=== PATIENT | female | born 1985 | race Caucasian/White ===

== ENCOUNTER 2019-09-23 12:30 | Emergency (ER) | payer OTHER ==
[2019-09-23 12:40] VITALS: BP 97/62; PULSE 85; TEMP 97.9; BMI 34.3
--- NOTE | 2019-09-23 13:26 | PDOC ---
History of Present Illness - General History Source: Patient Exam Limitations: Clinical Condition - History of Present Illness Initial Comments: 09/23/19 13:20 Patient with 13 weeks on ultrasound present with complaint of blood on tissue when using bathroom today. Patient also reporting 2 weeks history of intermittent cough which she saw her PCP a week ago and was advised likely from cold. Denies fevers, chills, body aches, weakness. Patient reported having outpatient ultrasound done last week with normal . Patient has not taken anything for symptoms. Denies any other symptoms <ShellyMeet Jacob - Last Filed: 09/23/19 14:31> <Tony Gonzales - Last Filed: 09/23/19 16:00> - General Chief Complaint: Vaginal Bleeding Stated Complaint: 13 WKS PRGT Time Seen by Provider: 09/23/19 12:46 Past History - Past Medical History COPD: No GI Disorders: Yes (Gastritis, Gastric ulcer) - Psycho Social/Smoking Cessation Hx Smoking History: Never smoked <ShellyMeet Jacob - Last Filed: 09/23/19 14:31> <Tony Gonzales - Last Filed: 09/23/19 16:00> - Past Medical History Allergies/Adverse Reactions: Allergies Allergy/AdvReac Type Severity Reaction Status Date / Time tramadol Allergy Verified 09/23/19 12:41 Review of Systems - Review of Systems Able to Perform ROS?: Yes Is the patient limited Montenegrin proficient: No Constitutional: No: Chills, Fever, Malaise HEENTM: No: Symptoms Reported, See HPI, Eye Pain, Blurred Vision, Tearing, Recent change in vision, Double Vision, Cataracts, Ear Pain, Ocular Prothesis, Ear Discharge, Nose Pain, Nose Congestion, Tinnitus, Nose Bleeding, Hearing Loss, Throat Pain, Throat Swelling, Mouth Pain, Dental Problems, Difficulty Swallowing, Mouth Swelling, Other Respiratory: Yes: Symptoms reported, See HPI, Cough. No: Orthopnea, Shortness of Breath, SOB with Exertion, SOB at Rest, Stridor, Wheezing, Productive cough, Hemoptysis, Other Cardiac (ROS): Yes: Symptoms Reported, See HPI, Chest Pain (intermittent midsternal pain). No: Edema, Irregular Heart Rate, Lightheadedness, Palpita tions, Syncope, Chest Tightness, Other ABD/GI: Yes: Symptoms Reported, See HPI, Nausea. No: Constipated, Diarrhea, Poor Appetite, Vomiting, Indigestion, Abdominal cramping : No: Symptoms Reported, Burning, Dysuria, Discharge, Frequency, Flank Pain, Hematuria, Incontinence, Urgency All Other Systems: Reviewed and Negative <Meet Bravo - Last Filed: 09/23/19 14:31> *Physical Exam - Vital Signs Last Vital Signs Temp Pulse Resp BP Pulse Ox 97.9 F 85 20 97/62 100 09/23/19 12:37 09/23/19 12:37 09/23/19 12:37 09/23/19 12:37 09/23/19 12:37 - Physical Exam General Appearance: Yes: Nourished, Appropriately Dressed. No: Apparent Distress HEENT: positive: YULI, Normal ENT Inspection, Pharynx Normal Neck: positive: Supple Respiratory/Chest: positive: Lungs Clear, Normal Breath Sounds. negative: Chest Tender, Respiratory Distress, Accessory Muscle Use Cardiovascular: positive: Regular Rhythm, Regular Rate Female Pelvic Exam: positive: normal external exam, cervical os closed, normal adnexa. negative: CMT, discharge, lesions, adnexal tenderness, vaginal bleeding Gastrointestinal/Abdominal: positive: Normal Bowel Sounds, Soft. negative: Tender, Organomegaly Musculoskeletal: positive: Normal Inspection. negative: CVA Tenderness Extremity: positive: Normal Inspection Integumentary: positive: Normal Color Neurologic: positive: Fully Oriented, Alert, Normal Mood/Affect, Normal Response, Motor Strength 5/5 <Meet Bravo - Last Filed: 09/23/19 14:31> - Vital Signs Last Vital Signs Temp Pulse Resp BP Pulse Ox 97.9 F 85 20 97/62 100 09/23/19 12:37 09/23/19 12:37 09/23/19 12:37 09/23/19 12:37 09/23/19 12:37 <Tony Gonzales - Last Filed: 09/23/19 16:00> ED Treatment Course - LABORATORY CBC & Chemistry Diagram: 09/23/19 13:10 - RADIOLOGY Radiology Studies Ordered: Category Date Time Status <14WKS US [US] Stat Ultrasound 09/23/19 13:13 Ordered <Meet Bravo - Last Filed: 09/23/19 14:31> - LABORATORY CBC & Chemistry Diagram: 09/23/19 13:10 - ADDITIONAL ORDERS Additional order review: Laboratory Results 09/23/19 09/23/19 09/23/19 13:13 13:10 13:10 Beta HCG, Quant 46904.2 Urine Color Yellow Urine Appearance Clear Urine pH 6.5 Ur Specific [place] 1.018 Urine Protein Negative Urine Glucose (UA) Negative Urine Ketones Negative Urine Blood Negative Urine Nitrite Negative Urine Bilirubin Negative Urine Urobilinogen 1.0 Ur Leukocyte Esterase Negative Blood Type A POSITIVE Antibody Screen Negative 09/23/19 13:10 RBC 3.73 MCV 95.8 MCHC 33.9 RDW 12.2 MPV 9.1 Neutrophils % 66.2 Lymphocytes % 24.3 Monocytes % 7.6 Eosinophils % 1.6 Basophils % 0.3 - Medications Given in the ED: ED Medications Discontinued Medications Generic Name Dose Route Start Last Admin Trade Name Zachery PRN Reason Stop Dose Admin Acetaminophen 650 mg 09/23/19 13:27 09/23/19 13:42 Tylenol - PO 09/23/19 13:28 650 mg ONCE ONE Administration Ondansetron HCl 4 mg 09/23/19 13:27 09/23/19 13:43 Zofran Odt - SL 09/23/19 13:28 4 mg ONCE ONE Administration <Tony Gonzales - Last Filed: 09/23/19 16:00> Medical Decision Making - Medical Decision Making 09/23/19 13:21 Patient with 13 weeks on ultrasound present with complaint of blood on tissue when using bathroom today. Patient also reporting 2 weeks history of intermittent cough which she saw her PCP a week ago and was advised likely from cold. Denies fevers, chills, body aches, weakness. Patient reported having outpatient ultrasound done last week with normal . Patient has not taken anything for symptoms. Denies any other symptoms Clinical exam unremarkable. No vaginal bleeding or blood in vaginal vault. Cervical os closed. Lungs clear to auscultation bilateral. Patient afebrile. Patient cough symptoms likely viral URI. Will do type and screen to make sure no need for RhoGam. Beta hCG lab ordered. Patient report intermittent abdominal cramping. Tylenol ordered for pain. ultrasound ordered to evaluate . Treat based on lab and imaging results 09/23/19 14:27 CBC and chemistry lab unremarkable. Vaginal ultrasound shows live IUP with BPD consistent with 14.5 weeks with live IUP and heart rate of 161 bpm. Patient is symptomatic now and stable for discharge with strict follow-up <Meet Bravo - Last Filed: 09/23/19 14:31> - Medical Decision Making 09/23/19 16:00 I reviewed the case of the mid-level practitioner and was available for consultation while in the emergency department <Tony Gonzales - Last Filed: 09/23/19 16:00> Discharge - Discharge Information Problems reviewed: Yes - Admission No <Meet Bravo - Last Filed: 09/23/19 14:31> <Tony Gonzales - Last Filed: 09/23/19 16:00> - Discharge Information Clinical Impression/Diagnosis: Threatened , URI with cough and congestion Condition: Stable Disposition: HOME - Patient Discharge Instructions Patient Printed Discharge Instructions: DI for Threatened Additional Instructions: Your blood work is normal. Your ultrasound shows live baby and is normal. follow back with your FR[employer] WE[employer] DES[employer]ER about the vaginal bleeding. Take Tylenol as needed for pain. Increase fluid intake. Come back to emergency room if worsening vaginal bleeding
[2019-09-23] MEDS ORDERED: ONDANSETRON *ODT* 4 MG TABLET SL ONE (13:27)
[2019-09-23] MEDS ORDERED: ACETAMINOPHEN 325 MG TABLET (FP) PO ONE (13:27)
[2019-09-23] MEDS ORDERED: ONDANSETRON *ODT* 4 MG TABLET ONE (13:28)
[2019-09-23] MEDS ORDERED: ACETAMINOPHEN 325 MG TABLET (FP) ONE (13:28)
[2019-09-23 13:44] LABS: BASO % 0.3 % (0-2.0); EOS % 1.6 % (0-4.5); HEMATOCRIT 35.7 % (32.4-45.2); HEMOGLOBIN 12.1 GM/dL (10.7-15.3); LYMPH % 24.3 % (8-40); MCH 32.5 pg (25.7-33.7); MCHC 33.9 g/dl (32.0-36.0); MEAN CELL VOLUME 95.8 fl (80-96); MEAN PLT VOLUME 9.1 fl (7.5-11.1); MONO % 7.6 % (3.8-10.2); NEUT % 66.2 % (42.8-82.8); PLATELET COUNT 275 K/MM3 (134-434); RBC 3.73 M/mm3 (3.60-5.2); RDW 12.2 % (11.6-15.6); WHITE BLOOD COUNT 6.4 K/mm3 (4.0-10.0)
[2019-09-23 13:50] LABS: PH,URINE 6.5 (5.0-8.0); URINE APPEARANCE CLEAR; URINE BILIRUBIN NEGATIVE (NEGATIVE); URINE COLOR YELLOW; URINE GLUCOSE (UA) NEGATIVE (NEGATIVE); URINE KETONE NEGATIVE (NEGATIVE); URINE LEUK ESTERASE NEGATIVE (NEGATIVE); URINE NITRITE NEGATIVE (NEGATIVE); URINE PROTEIN NEGATIVE (NEGATIVE)
== END 2019-09-23 14:35 | disposition home or self-care (01) ==
LOC: JER 12:30
DX: O20.0 Threatened abortion (principal); O99.511 Diseases of the respiratory system complicating pregnancy, first trimester; J06.9 Acute upper respiratory infection, unspecified; Z3A.13 13 weeks gestation of pregnancy
CPT/HCPCS: 36415; 76801-TC; 81003; 84702; 85025; 86850; 86900; 86901; 87086; 99284-25; Q0162

== ENCOUNTER 2020-03-12 12:31 | Inpatient (IN) | payer OTHER ==
--- OUTSIDE RECORDS SUMMARY | 2020-03-12 12:48 | XMS ---
:1985 Author Organization [facility] Support Name Relationship Address Phone UE, UNEMPLOYED Unavailable Unavailable Unavailable UE Unavailable Unavailable Unavailable TANYA RODRIGUEZ [address] [place] [address] TANYA TOMLINSON Unavailable [address] [place] [address] Re-disclosure Warning The records that you are about to access may contain information from federally- assisted alcohol or drug abuse programs. If such information is present, then the following federally mandated warning applies: This information has been disclosed to you from records protected by federal confidentiality rules (42 CFR part 2). The federal rules prohibit you from making any further disclosure of this information unless further disclosure is expressly permitted by the written consent of the person to whom it pertains or as otherwise permitted by 42 CFR part 2. A general authorization for the release of medical or other information is NOT sufficient for this purpose. The Federal rules restrict any use of the information to criminally investigate or prosecute any alcohol or drug abuse patient.The records that you are about to access may contain highly sensitive health information, the redisclosure of which is protected by Article 27-F of the [facility] Public Health law. If you continue you may haveaccess to information: Regarding HIV / AIDS; Provided by facilities licensed or operated by the [facility] Office of Mental Health; or Provided by the [facility] Office for People With Developmental Disabilities. If such information is present, then the following [facility] mandated warning applies: This information has been disclosed to you from confidential records which are protected by state law. State law prohibits you from making any further disclosure of this information without the specific written consent of the person to whom it pertains, or as otherwise permitted by law. Any unauthorized further disclosure in violation of state law may result in a fine or snf sentence or both. A general authorization for the release of medical or other information is NOT sufficient authorization for further disclosure. Insurance Providers Payer name Policy type Policy ID Covered Covered constitution party's Policy P thor / Coverage constitution party ID relationship to Aldana Inf ormation type aldana DARLENE [id number] 600 HEALTH NON CAP DARLENE [id number] ESSENTIAL PLAN 1 2 Results ID Date Data Source [id number] 03/07/2020 09:29:00 AM EDT [facility] Name Value Range Interpretation Description Data Sup porting Code Source(s) Document(s ) SARS [facility] coronavirus 2 RNA This lab was ordered by [facility] and reported by [facility]. ID Date Data Source [id number] 12/13/2019 12:00:00 AM EDT [facility] Name Value Range Interpretation Code Description Data Lacey rce(s) Supporting Document(s ) 2019-nCoV [facility] RNA XXX DARRYL+probe- Imp This lab was ordered by [facility] and reported by [employer] Procedure
[2020-03-12] MEDS: ELECTROLYTE-148 SOLN 1,000 ML IV SCH ×2 (13:00→14:16)
[2020-03-12] MEDS ORDERED: CITRIC ACID/SODIUM CITRATE 30 ML UNIT-DOSE CUP PO ONE (13:28)
[2020-03-12] MEDS ORDERED: ELECTROLYTE-148 SOLN 1,000 ML IV SCH (13:30)
--- NOTE | 2020-03-12 13:38 | HP ---
Past Medical History - Primary Care Physician PCP:: Waldemar Eckert - Admission History Source: Patient Limitations to Obtaining History: No Limitations - Past Medical History SAUSAGE STRINGER: No: Alzheimer's, CVA, Dementia, Migraine, Multiple Sclerosis, Peripheral Neuropathy, Parkinson's, Seizure, Syncope, TIA, Vertigo, Other Cardiovascular: No: AFIB, Aneurysm, Aortic Insufficiency, Aortic Stenosis, CAD, CHF, Deep Vein Thrombosis, HTN, Hyperlipdemia, DC, Mitral Insufficiency, Mitral Stenosis, Murmur, Pulmonary Hypertension, Other Pulmonary: No: Asthma, Bronchitis, Cancer, COPD, O2 Dependent, Pneumonia, Previously Intubated, Pulmonary Embolus, Pulmonary Fibrosis, Sleep Apnea, Other Gastrointestinal: No: Ascites, Cancer, Constipation, Crohn's Disease, Diverticulitis, Diverticulosis, Esophageal Varices, Gastritis, GERD, GI Bleed, Hemorrhoids, Hiatal Hernia, Inflamatory Bowel Disease, Irritable Bowel Disease, Pancreatitis, Peptic Ulcer Disease, Ulcerative Colitis, Other Hepatobiliary: No: Cirrhosis, Cholelithiasis, Cholecystitis, Choledocholithiasis, Hepatitis A, Hepatitis B, Hepatitis C, Other Renal/: No: Renal Failure, Renal Inusuff, BPH, Cancer, Hematuria, Hemodialysis, Neurogenic Bladder, Renal Calculi, UTI, Other Reproductive: No: Ectopic , Endometriosis, Fibroids, PID, Polycystic Ovary Syndrome, Postmenopausal, Other Heme/Onc: No: Anemia, B12 Deficiency, Bleeding Disorder, Cancer, Current Chemotherapy, Current Radiation Therapy, Hemochromatosis, Hypercoaguable State, Myeloproliferative Synd, Sickle Cell Disease, Sickle Cell Trait, Thrombocytopenia, Other Infectious Disease: No: AIDS, C-Diff, Herpes Zoster, HIV, MRSA, STD's, Tuberculosis, VREF, Other Psych: No: Addictions, Anxiety, Bipolar, Depression, Panic, Psychosis, Schizophrenia, Other Musculoskeletal: No: Bursitis, Chronic low back pain, Hemiparesis, Hemiplegia, Osteoarthritis, Paraplegia, Other Rheumatology: No: Fibromyalgia, Gout, Lupus, Rheumatoid Arthritis, Sarcoidosis, Vasculitis, Other ENT: No: Allergic Rhinitis, Sinusitis, Other Endocrine: No: Zavala's Disease, [place]'s Disease, Diabetes Insipidus, Diabetes Mellitus, Hyperparathyroidism, Hyperthyroidism, Hypothyroidism, Osteopenia, SIADH, Other Dermatology: No: Basal Cell, Cellulitis, Eczema, Melanoma, Psoriasis, Squamous Cell, Other - Past Surgical History Past Surgical History: Yes: Hx Myomectomy: No Hx Transabdominal Cerclage: No - Smoking History Smoking history: Never smoked Have you smoked in the past 12 months: No - Alcohol/Substance Use Hx Alcohol Use: No - Social History History of Recent Travel: No Home Medications - Allergies Allergies/Adverse Reactions: Allergies Allergy/AdvReac Type Severity Reaction Status Date / Time tramadol Allergy Vomiting Verified 01/25/20 12:30 - Home Medications Home Medications: Ambulatory Orders Vit 93/Iron Fum/Folic [ Formula Tablet] 1 each PO DAILY 01/25/20 Family Medical History Family History: Unremarkable Review of Systems Findings/Remarks: Anxious - Review of Systems Constitutional: reports: No Symptoms Eyes: reports: No Symptoms HENT: reports: No Symptoms Neck: reports: No Symptoms Cardiovascular: reports: No Symptoms Respiratory: reports: No Symptoms Gastrointestinal: reports: No Symptoms Genitourinary: reports: No Symptoms Breasts: reports: No Symptoms Reported Musculoskeletal: reports: No Symptoms Neurological: reports: No Symptoms Endocrine: reports: No Symptoms Hematology/Lymphatic: reports: No Symptoms Psychiatric: reports: No Symptoms Physical Exam - Maternity Vital Signs: as reported by nursing Constitutional: Yes: No Distress HENT: Yes: Atraumatic Neck: Yes: Supple - Abdominal Exam/OB Number of Fetuses: Single Presentation: Vertex Contractions: Yes Regularity: Irritability Intensity: Unaware Monitor Mode: External Heart Rate (range): 140 Category: I Accelerations: Uniform Decelerations: None - Vaginal Exam/OB Vaginal Bleeding: No Speculum Exam: No Amniotic Membrane Status: Intact - Physical Exam Musculoskeletal: Yes: WNL Extremities: Yes: WNL Edema: Yes Edema: LLE: Trace, RLE: Trace Integumentary: Yes: Laceration ...Motor Strength: WNL Psychiatric: Yes: Alert, Oriented - Labs Lab Results: reviewed Imaging - Results Ultrasound: Report Reviewed Assessment/Plan 35 y/o @ 39.0wks, prior C/S and desiring repeat, risks and complications of the procedure discussed and all questions answered. Informed consnet obtained. -proceed as scheduled.
[2020-03-12 14:11] VITALS: BMI 38.9
[2020-03-12] MEDS ORDERED: morphine SULFATE/PF 0.5 MG/ML (2cc Syringe - QUVA) ONE (14:33)
[2020-03-12] MEDS ORDERED: ePHEDrine SULFATE 50 MG/1 ML AMPULE ONE (14:46)
[2020-03-12] MEDS ORDERED: OXYTOCIN 20 UNITS in 0.9% NS 40 UNIT/2,000 ML INFUS.BAG IV ONE (14:58)
[2020-03-12] MEDS: OXYTOCIN 20 UNITS in 0.9% NS 20 UNIT/1,000 ML INFUS.BAG IV SCH ×2 (15:20→16:11)
--- NOTE | 2020-03-12 15:21 | PN ---
Progress Note (short form) - Note Progress Note: Attended schedule C/S for this 35 yrs old mother with PNL-nl. delivered , clear fluid cried soon after suctioned/ dried cord 3V 9/9 Infant's PE exam Infant remains clinically stable HEENT- nl, Neck supple Chest B/L symm, S1-S2 nl, no heart murmur nl male infant Ext FROM nl hip exam Good tone & activity RNBc watch for resp distress Encourage Bf/ bonding
--- NOTE | 2020-03-12 15:46 | OP ---
Operative Note - Note: Operative Date: 03/12/20 (# [id number]) Pre-Operative Diagnosis: prior c/S Operation: RLTCS Findings: see dictations Post-Operative Diagnosis: Same as Pre-op Surgeon: Waldemar Eckert [employer] Assistant: Deric Rocha Anesthesia: Spinal Specimens Removed: placenta Estimated Blood Loss (mls): 800 Drains, Volume Out (mls): 75 (clear urine) Fluid Volume Replaced (mls): 2,000 Operative Report Dictated: Yes
[2020-03-12] MEDS ORDERED: ONDANSETRON 4 MG/2 ML VIAL IVPUSH PRN (15:54)
[2020-03-12] MEDS ORDERED: morphine SULFATE/PF 0.5 MG/ML (2cc Syringe - QUVA) EP ONE (15:54)
--- NOTE | 2020-03-12 17:20 | OP ---
DATE OF OPERATION: 03/12/2020 PREOPERATIVE DIAGNOSIS: A 35-year-old female 2, para 0-1-0-1 at 39 weeks of gestation, prior section, desires repeat. Obese. POSTOPERATIVE DIAGNOSIS: A 35-year-old female 2, para 0-1-0-1 at 39 weeks of gestation, prior section, desires repeat. Obese. PROCEDURE: Repeat low transverse section. SURGEON: Elise Dodson MD. WATER CHEMIST: BK Cook. ANESTHESIA: Spinal. ESTIMATED BLOOD LOSS: EBL for the procedure is 800 mL crystalloid. URINE: 75 mL clear urine. COMPLICATIONS: None. SPECIMEN: Placenta. INTRAOPERATIVE FINDINGS: Low abdominal scar consistent with prior section, pronounced amount of subcutaneous adipose tissue. The fascia was thick and fibrotic, adherent to the underlying rectus muscles. The rectus muscles were fused to each other in the midline. No parietal visceral peritoneal adhesions. Thin adhesions of the bladder to the lower, the bladder was adherent to the lower uterine segment. The lower uterine segment was not effaced. Infant in cephalic presentation. Live viable male. Loose nuchal cord x1 noted. Clear amniotic fluid. Uterus, fallopian tubes, and ovaries consistent with normal anatomy. DESCRIPTION OF PROCEDURE: The patient was taken to the operating room where anesthesia was found to be adequate. She was then prepped and draped in the normal sterile fashion. A Velásquez catheter was placed atraumatically. Appropriate timeout took place. Pfannenstiel skin incision following prior section scar was made with the scalpel and incision carried through pronounced amount of subcutaneous adipose tissue to put the Bovie. The fascia was incised in the midline and incision extended laterally with sharp dissection. The underlying rectus muscles were dissected off sharply. The rectus muscles were elevated and superiorly with Allis were transected vertically superiorly. Inferior entry into the peritoneal cavity revealed no visualized adhesions. Incision was extended superiorly and inferiorly with sharp dissection. Took adhesions of the bladder to the anterior peritoneum and lower uterine segment were taken down sharply. The lower uterine segment incision was made with the scalpel and extended laterally with blunt dissection. Amniotomy revealed clear amniotic fluid. Infant was delivered through surgical incision with mild fundal pressure. Loose nuchal cord was removed. The umbilical cord was clamped and cut after delay and handed off to the waiting NICU staff. The placenta was delivered manually and intact. The uterus was exteriorized through the surgical incision, the intrauterine cavity was cleared of all clots and debris. The incision was reapproximated with 1-0 Polysorb in a running locked suture. Excellent structural reapproximation with 1 layer suture, 1 [id number]-[id number] stitch required in the midline to control minimal oozing. Uterus was internalized to the pelvic cavity and gutters were cleared of all clots and debris. Inspection of the lower uterine segment incision revealed once again excellent hemostasis. The fascial incision was reapproximated with 0 Polysorb running nonlocked sutures. This was done at the bladder dome, rectus muscle fascia interface, and carefully inspected for no active bleeding or evidence of trauma. Fascial layer approximation was . Subcutaneous tissues were copiously irrigated and reapproximated with 2-0 chromic sutures. Skin incision was reapproximated with surgical christy. The patient tolerated the procedure well and was brought to the recovery room in stable condition. Instrument count was reported as correct x2. ELISE DODSON MD [id number]
[2020-03-12] MEDS: IBUPROFEN 800 MG/8 ML IJ IVPB PRN (23:14)
[2020-03-13] MEDS: IBUPROFEN 800 MG/8 ML IJ IVPB PRN (06:37)
[2020-03-13 07:38] LABS: BASO % 0.1 % (0-2.0); HEMATOCRIT 30.7 % (32.4-45.2); HEMOGLOBIN 10.1 GM/dL (10.7-15.3); LYMPH % 7.3 % (8-40); MCH 31.9 pg (25.7-33.7); MCHC 32.8 g/dl (32.0-36.0); MEAN CELL VOLUME 97.2 fl (80-96); MEAN PLT VOLUME 9.1 fl (7.5-11.1); MONO % 4.6 % (3.8-10.2); PLATELET COUNT 228 K/MM3 (134-434); RBC 3.16 M/mm3 (3.60-5.2); RDW 12.4 % (11.6-15.6); WHITE BLOOD COUNT 17.8 K/mm3 (4.0-10.0)
--- NOTE | 2020-03-13 07:55 | PN ---
Post Progress Note - Subjective Subjective: Velásquez in place, not yet ambulating, tolerating PO, lochia present and nurse reports it more pronounced, pain controlled Post Day: 1 Type of Delivery: Repeat C/S Vital Signs: Vital Signs Temperature 98.3 F 03/13/ 06:00 Pulse Rate 82 03/13/20 06:00 Respiratory Rate 20 03/13/20 06:00 Blood Pressure 102/52 L 03/13/20 06:00 O2 Sat by Pulse Oximetry (%) 96 03/13/20 06:00 Breast Exam: Yes: Other Uterus: Yes: Fundus Firm Incision: Yes: Dressing dry and intact (christy removed), [place] intact Abdomen/GI: Yes: Abdomen soft Lochia, amount: Moderate Extremities: Yes: Calves non-tender Perineum: Yes: Intact (SVE: cervix is FT and no lower segment clots noted, fundus firm and 2 cm below umbilicus, minimal lochia) Activity: Other Assessment/Plan 35 y/o on POD # 1 in stable condition, no evidence of active bleeding -F/U CBC -Continue PP/post-op care -Anticipate D/C home on POD # 3
--- NOTE | 2020-03-13 08:39 | PN ---
Progress Note (short form) - Note Progress Note: Anesthesiologist pot op note, POD#1. S/P repeat under spinal anesthesia with duramorph. Pat seen and examined. VSS. Pain well controlled. 08/08. Moving all extremities. Reports pain in right lower leg, where she states having chronic problem with poor circulation.No new onset. No swelling or TTP of right lower extremity. No apparent post anesthesia complications.
[2020-03-13] MEDS: ACETAMINOPHEN 325 MG TABLET (FP) PO PRN (10:30)
[2020-03-13] MEDS ORDERED: CEFAZOLIN 2 GM/D5W 2 GM/50 ML ML IVPB ONE (11:15)
[2020-03-13] MEDS: oxyCODONE HCL 5 MG TABLET PO PRN ×3 (12:34→21:09)
[2020-03-13] MEDS: IBUPROFEN 600 MG TABLET (FP) PO PRN ×3 (12:36→21:11)
[2020-03-13] MEDS ORDERED: BISACODYL 10 MG SUPP.RECT RC PRN (13:38)
[2020-03-13] MEDS: SIMETHICONE 80 MG TAB.CHEW (FP) PO PRN (21:09)
[2020-03-14] MEDS: oxyCODONE HCL 5 MG TABLET PO PRN ×3 (05:31→19:12)
[2020-03-14] MEDS: SIMETHICONE 80 MG TAB.CHEW (FP) PO PRN ×2 (05:31→11:40)
[2020-03-14] MEDS: IBUPROFEN 600 MG TABLET (FP) PO PRN ×4 (05:33→19:12)
--- NOTE | 2020-03-14 08:51 | PN ---
Post Progress Note - Subjective Subjective: pain scale 8/10 voiding without difficulty Post Day: 2 Type of Delivery: Repeat C/S Vital Signs: Vital Signs Temperature 97.9 F 03/13/20 22:00 Pulse Rate 103 H 03/13/20 22:00 Respiratory Rate 18 03/13/20 22:00 Blood Pressure 106/71 03/13/20 22:00 O2 Sat by Pulse Oximetry (%) 96 03/13/20 06:00 Breast Exam: Yes: Soft. No: Engorged Uterus: Yes: Fundus Firm, Fundus below umbilicus (ut tender). No: Non-tender Incision: Yes: Rani intact. No: Redness, Oozing Abdomen/GI: Yes: Abdomen soft, Tender, Passing flatus (bm not done ), Tolerating PO (diet). No: Abdominal Distention Lochia: Yes: Rubra Lochia, amount: Small Extremities: Yes: Calves non-tender Perineum: Yes: Intact Activity: Ambulating - Labs Labs: CBC WBC 17.8 K/mm3 (4.0-10.0) H 03/13/20 07:00 RBC 3.16 M/mm3 (3.60-5.2) L 03/13/20 07:00 Hgb 10.1 GM/dL (10.7-15.3) L 03/13/20 07:00 Hct 30.7 % (32.4-45.2) L 03/13/20 07:00 MCV 97.2 fl (80-96) H 03/13/20 07:00 MCH 31.9 pg (25.7-33.7) 03/13/20 07:00 MCHC 32.8 g/dl (32.0-36.0) 03/13/20 07:00 RDW 12.4 % (11.6-15.6) 03/13/20 07:00 Plt Count 228 K/MM3 (134-434) 03/13/20 07:00 MPV 9.1 fl (7.5-11.1) 03/13/20 07:00 Absolute Neuts (auto) 15.6 K/mm3 (1.5-8.0) H 03/13/20 07:00 Neutrophils % 88.0 % (42.8-82.8) H D 03/13/20 07:00 Lymphocytes % 7.3 % (8-40) L D 03/13/20 07:00 Monocytes % 4.6 % (3.8-10.2) 03/13/20 07:00 Eosinophils % 0.0 % (0-4.5) D 03/13/20 07:00 Basophils % 0.1 % (0-2.0) 03/13/20 07:00 Nucleated RBC % 0 % (0-0) 03/13/20 07:00 Problem List - Problems (1) Status post section routine follow-up Code(s): Z39.2 - ENCOUNTER FOR ROUTINE FOLLOW-UP; Z98.891 - HISTORY OF UTERINE SCAR FROM PREVIOUS SURGERY Assessment/Plan pt stable. s/p poc/s day#2 pt encouraged to ambulate , drink po fluids , take deep breaths . will discharge PO Day #3
[2020-03-14 12:46] VITALS: TEMP 97.7
[2020-03-14] MEDS: ACETAMINOPHEN 325 MG TABLET (FP) PO PRN (15:46)
--- NOTE | 2020-03-14 18:01 | PATH ---
Surgical Pathology Report Patient Name: RYANN PARSONS Med. Rec. #: [id number] /Age/Gender: 1985 (Age: 35) / F Account: [id number] Location: [facility] OBS/LEAD SHIPPER Taken: 03/12/2020 Received: 03/13/2020 Reported: 03/14/2020 Physicians: Waldemar Eckert MD Specimen(s) Received PLACENTA Clinical History , Final Diagnosis PLACENTA, SECTION: 646 G THIRD TRIMESTER PLACENTA WITH TRIVASCULAR UMBILICAL CORD AND UNREMARKABLE PLACENTAL MEMBRANES. Electronically Signed Carmella Bonds M.D. Gross Description The specimen is received fresh labeled placenta and is a 646 gram, 20 x 17 x 5 cm. placenta with attached membranes and umbilical cord. The attached membranes are valdez, translucent, and insert marginally. The umbilical cord measures 57 cm. in length and averages 1.4 cm. in diameter. The cord inserts eccentrically, 5 cm. to the nearest margin. No true knots or strictures are identified. Cut surface of the umbilical cord reveals 3 vessels. The surface is brownlee-blue with minimal fibrin deposition and appropriate caliber vessels. The maternal surface is red-brown with focal defects. Sectioning reveals red-brown, spongy parenchyma. No lesions are identified. Referral Manager sections are submitted in three cassettes as follows: 1- membrane rolls and umbilical cord; 2-3- full thickness sections of placenta. MLSZ/03/13/2020 sanml/03/13/2020
[2020-03-15] MEDS: IBUPROFEN 600 MG TABLET (FP) PO PRN ×2 (00:14→05:17)
[2020-03-15] MEDS: ACETAMINOPHEN 325 MG TABLET (FP) PO PRN ×2 (00:14→05:18)
[2020-03-15] MEDS: SIMETHICONE 80 MG TAB.CHEW (FP) PO PRN ×2 (00:16→11:11)
[2020-03-15] MEDS: oxyCODONE HCL 5 MG TABLET PO PRN (07:38)
--- NOTE | 2020-03-15 08:20 | PN ---
Post Progress Note - Subjective Subjective: Pain controlled. Passing flatus. Ambulating. No fevers/chills. Post Day: 3 Type of Delivery: Repeat C/S Vital Signs: Vital Signs Temperature 97.7 F 03/14/20 22:00 Pulse Rate 85 03/14/20 22:00 Respiratory Rate 18 03/14/20 22:00 Blood Pressure 101/61 03/14/20 22:00 O2 Sat by Pulse Oximetry (%) 96 03/13/20 06:00 Uterus: Yes: Fundus below umbilicus Incision: Yes: Rani intact Abdomen/GI: Yes: Abdomen soft, Tolerating PO Lochia: Yes: Rubra Perineum: Yes: Intact Activity: Ambulating - Labs Labs: CBC WBC 17.8 K/mm3 (4.0-10.0) H 03/13/20 07:00 RBC 3.16 M/mm3 (3.60-5.2) L 03/13/20 07:00 Hgb 10.1 GM/dL (10.7-15.3) L 03/13/20 07:00 Hct 30.7 % (32.4-45.2) L 03/13/20 07:00 MCV 97.2 fl (80-96) H 03/13/20 07:00 MCH 31.9 pg (25.7-33.7) 03/13/20 07:00 MCHC 32.8 g/dl (32.0-36.0) 03/13/20 07:00 RDW 12.4 % (11.6-15.6) 03/13/20 07:00 Plt Count 228 K/MM3 (134-434) 03/13/20 07:00 MPV 9.1 fl (7.5-11.1) 03/13/20 07:00 Absolute Neuts (auto) 15.6 K/mm3 (1.5-8.0) H 03/13/20 07:00 Neutrophils % 88.0 % (42.8-82.8) H D 03/13/20 07:00 Lymphocytes % 7.3 % (8-40) L D 03/13/20 07:00 Monocytes % 4.6 % (3.8-10.2) 03/13/20 07:00 Eosinophils % 0.0 % (0-4.5) D 03/13/20 07:00 Basophils % 0.1 % (0-2.0) 03/13/20 07:00 Nucleated RBC % 0 % (0-0) 03/13/20 07:00 Assessment/Plan 35yo s/p RLTCS, POD#3 Routine PP care PO pain control Labs reviewed D/C to home Roosevelt Da Silva MD
--- NOTE | 2020-03-15 08:30 | DS ---
Physical Examination Vital Signs: Vital Signs Temperature 97.7 F 03/14/20 22:00 Pulse Rate 85 03/14/20 22:00 Respiratory Rate 18 03/14/20 22:00 Blood Pressure 101/61 03/14/20 22:00 O2 Sat by Pulse Oximetry (%) 96 03/13/20 06:00 Constitutional: Yes: Well Nourished, No Distress, Calm Eyes: Yes: WNL, Conjunctiva Clear, EOM Intact HENT: Yes: WNL, Atraumatic, Normocephalic Neck: Yes: WNL, Supple, Trachea Midline Cardiovascular: Yes: WNL, Regular Rate and Rhythm Respiratory: Yes: WNL, Regular, CTA Bilaterally Gastrointestinal: Yes: WNL, Normal Bowel Sounds Musculoskeletal: Yes: WNL Extremities: Yes: WNL Edema: Yes Edema: LLE: 1+, RLE: 1+ Integumentary: Yes: WNL Neurological: Yes: WNL, Alert, Oriented ...Motor Strength: WNL Psychiatric: Yes: WNL Labs: CBC, BMP 03/13/20 07:00 Discharge Summary Problems reviewed: Yes Reason For Visit: Current Active Problems Status post section routine follow-up (Acute) Hospital Course: Patient presented for scheduled RLTCS She had an uncomplicated RLTCS She met all milestones She was discharged home on POD#3 in stable condition Condition: Stable - Instructions Diet, Activity, Other Instructions: Please return to regular diet as tolerated, refrain from strenuous activity until cleared by MD, follow up within a week of discharge for incision check, take medications as prescribed, call MD with any questions or concerns. Referrals: Waldemar Eckert MD [Staff Physician] - Disposition: HOME - Home Medications Comprehensive Discharge Medication List: Ambulatory Orders Vit 93/Iron Fum/Folic [ Formula Tablet] 1 each PO DAILY Acetaminophen [Tylenol] 650 mg PO Q6H PRN #30 capsule MDD 5 03/12/20 Ibuprofen 600 mg PO Q6H PRN #30 tablet 03/12/20 Miscellaneous Medical Supply [Electronic Breast Pumo] 1 each NR ASDIR #1 unit 03/12/20 Oxycodone HCl [Roxicodone] 5 mg PO Q6H PRN #14 tablet MDD 5 03/12/20
[2020-03-15 08:58] LABS: BASO % 0.6 % (0-2.0); EOS % 1.4 % (0-4.5); HEMATOCRIT 30.6 % (32.4-45.2); HEMOGLOBIN 10.3 GM/dL (10.7-15.3); LYMPH % 33.3 % (8-40); MCH 32.8 pg (25.7-33.7); MCHC 33.6 g/dl (32.0-36.0); MEAN CELL VOLUME 97.7 fl (80-96); MEAN PLT VOLUME 8.9 fl (7.5-11.1); NEUT % 57.7 % (42.8-82.8); PLATELET COUNT 235 K/MM3 (134-434); RBC 3.13 M/mm3 (3.60-5.2); RDW 12.4 % (11.6-15.6)
[2020-03-15 14:15] VITALS: BP 130/46; PULSE 84
== END 2020-03-15 13:00 | disposition home or self-care (01) | DRG 540 ==
LOC: JLDR 12:31 → J3W 19:56
PROVIDERS: ADMIT Student in an Organized Health Care Education/Training Program; ATTEND Student in an Organized Health Care Education/Training Program
PROC: 10D00Z1 Extraction of Products of Conception, Low, Open Approach (ICD-10-PCS; principal; 2020-03-12)
DX: O82 Encounter for cesarean delivery without indication (principal); O99.214 Obesity complicating childbirth; E66.9 Obesity, unspecified; O69.81X0 Labor and delivery complicated by cord around neck, without compression, not applicable or unspecified; O34.211 Maternal care for low transverse scar from previous cesarean delivery; Z3A.39 39 weeks gestation of pregnancy; Z37.0 Single live birth
CPT/HCPCS: 36415; 85025; 88307-TC

== ENCOUNTER 2020-12-15 20:15 | Emergency (ER) | payer OTHER ==
[2020-12-15 20:27] VITALS: BP 110/71; PULSE 92; TEMP 98.4; BMI 34.8
[2020-12-15] MEDS ORDERED: KETOROLAC TROMETHAMINE 30 MG/1 ML VIAL IM ONE (21:24)
[2020-12-15] MEDS ORDERED: CEPHALEXIN MONOHYDRATE 500 MG CAPSULE (UD) PO ONE (21:24)
[2020-12-15] MEDS ORDERED: CEPHALEXIN MONOHYDRATE 500 MG CAPSULE (UD) ONE (21:54)
[2020-12-15] MEDS ORDERED: KETOROLAC TROMETHAMINE 30 MG/1 ML VIAL ONE (21:54)
== END 2020-12-16 00:50 | disposition home or self-care (01) ==
LOC: JERFT 20:15 → JER 20:15 → JERFT 12-16 00:50
PROC: 3E0233Z Introduction of Anti-inflammatory into Muscle, Percutaneous Approach (ICD-10-PCS; principal; 2020-12-15)
DX: N76.4 Abscess of vulva (principal)
CPT/HCPCS: 99284-25

== ENCOUNTER 2020-12-17 21:51 | Emergency (ER) | payer OTHER ==
[2020-12-17 22:07] VITALS: BP 105/73; PULSE 85; TEMP 98; BMI 34.8
== END 2020-12-18 00:30 | disposition left against medical advice (07) ==
LOC: JER 21:51 → JERFT 21:51 → JER 12-18 00:30
DX: N75.0 Cyst of Bartholin's gland (principal)
CPT/HCPCS: 99281-25

== ENCOUNTER → 2022-12-04 | Emergency (ER) | payer OTHER ==
[~2022-12-04] MED LIST: SULFAMETHOXAZOLE/TRIMETHOPRIM 800MG/160MG D.S. TABLET ONE; SULFAMETHOXAZOLE/TRIMETHOPRIM 800MG/160MG D.S. TABLET PO ONE
[2022-12-04 19:23] VITALS: BP 107/64; PULSE 87; RESP 18; TEMP 98.2; BMI 39.6
== END | disposition home or self-care (01) ==
LOC: JER 19:05
DX: R10.30 Lower abdominal pain, unspecified (principal); L03.311 Cellulitis of abdominal wall
CPT/HCPCS: 99283-25